=== PATIENT | male | born 1960 | race Caucasian/White ===

== ENCOUNTER 2019-04-18 03:56 | Emergency (ER) | payer MEDICAID, OTHER ==
[2019-04-18] MEDS ORDERED: KETOROLAC 60 MG/2 ML VIAL IM STA (04:31)
[2019-04-18] MEDS ORDERED: DEXAMETHASONE 10 MG/ML VIAL PO STA (04:31)
[2019-04-18] MEDS ORDERED: CHERRY SYRUP 10 ML UDC PO ONE (04:31)
--- NOTE | 2019-04-18 04:35 | ED Physician Documentation ---
PD HPI UPPER EXT INJURY - Stated complaint Stated Complaint: SHOULDER PX - Chief complaint Chief Complaint: Ext Problem - History obtained from History obtained from: Patient - History of Present Illness Location: Right, Shoulder Type of injury: Other (over use at work) Where injury occurred: Work Timing - onset: How many months ago (1) Timing - duration: Months (1) Timing - details: Gradual onset, Still present Improved by: Rest, Immobilization Worsened by: Moving, Palpating Associated symptoms: Swelling. 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 He states the pain has worsened. He has continued to go to work and the pain has continued to worsen. Tonight he cannot sleep the pain is so bad. Review of Systems Constitutional: denies: Fever Eyes: denies: Decreased vision Ears: denies: Ear pain Nose: denies: Congestion Throat: denies: Sore throat Respiratory: denies: Dyspnea, Cough GI: denies: Vomiting PD PAST MEDICAL HISTORY - Past Medical History Past Medical History: Yes Cardiovascular: Hypertension - Past Surgical History Past Surgical History: Yes - Present Medications Home Medications: Ambulatory Orders Medication Instructions Recorded Confirmed Hydrocodone/Acetaminophen 1 - 2 each PO Q6H PRN #14 tablet 04/18/19 [Hydrocodon-Acetaminophen 5-325] - Allergies Allergies/Adverse Reactions: Allergies Allergy/AdvReac Type Severity Reaction Status Date / Time No Known Drug Allergies Allergy Verified 04/18/19 04:03 - Social History Does the pt smoke?: No Smoking Status: Never smoker Does the pt drink ETOH?: No Does the pt have substance abuse?: No - Immunizations Immunizations are current?: No Immunizations: No immun - POLST Patient has POLST: No PD ED PE NORMAL - Vitals Vital signs reviewed: Yes (hypertensive ) - General General: Alert and oriented X 3, No acute distress, Well developed/nourished, Other (flat affect ) - HEENT HEENT: Atraumatic, PERRL, EOMI - Respiratory Respiratory: No respiratory distress - Derm Derm: Normal color, Warm and dry, No rash - Extremities Extremities: No deformity, No edema, Other (There is anterior fullness and tenderness to the right shoulder. There is restriction in ROM secondary to pain. The patient is able to flex and extend but not able to abduct. distal n/v is intact. ) - Neuro Neuro: Alert and oriented X 3, car pre cooler 2-12 intact, No motor deficit, No sensory deficit, Normal speech Eye Opening: Spontaneous Motor: Obeys Commands Verbal: Oriented GCS Score: 15 - Psych Psych: Normal mood, Normal affect Results - Vitals Vitals: Vital Signs - 24 hr 04/18/19 04:00 Temperature 36.5 C Heart Rate 61 Respiratory 18 Rate Blood Pressure 154/94 H O2 Saturation 99 Oxygen O2 Source Room air - Rads (name of study) R shoulder Radiology: Prelim report reviewed (Impression: Degenerative changes at the acromioclavicular joint. Otherwise, normal radiography of the right shoulder), EMP read indepedently, See rad report PD MEDICAL DECISION MAKING - ED course Complexity details: reviewed old records, reviewed results, re-evaluated patient, considered differential, d/w patient, d/w family ED course: 58-year-old male with an overuse of the right shoulder appears to have a bursitis and or tendinitis and he is administered dexamethasone and Toradol x- rays shoulders without evidence of fracture there is evidence of degenerative disease of the AC joint. He will need follow-up with orthopedics and potential further treatment. Departure - Departure Disposition: 01 Home, Self Care Clinical Impression: Bursitis Qualifiers: Bursitis location: shoulder Laterality: right Qualified Code(s): M75.51 - Bursitis of right shoulder Condition: Stable Instructions: ED Bursitis Follow-Up: [facility] [Provider Group] Prescriptions: Hydrocodone/Acetaminophen [Hydrocodon-Acetaminophen 5-325] 1 - 2 each PO Q6H PRN #14 tablet PRN Reason: pain
--- NOTE | 2019-04-18 05:07 | XRAY Report ---
Reason: anterior pain over use cant move through ROM Procedure Date: 04/18/2019 Accession Number: [id number] / [id number] Procedure: XR - Shoulder 3 View RT CPT Code: FULL RESULT: EXAM: RIGHT SHOULDER RADIOGRAPHY EXAM DATE: 04/18/2019 04:56 AM. CLINICAL HISTORY: Anterior pain over use cant move through ROM. COMPARISON: None. TECHNIQUE: 3 views. FINDINGS: Bones: Normal. No fracture or bone lesion. Joints: Hypertrophic and sclerotic changes at the acromioclavicular joint. Otherwise, the glenohumeral and acromioclavicular joints are normal. Soft tissues: The visualized hemithorax is unremarkable. No soft tissue swelling. IMPRESSION: Degenerative changes at the acromioclavicular joint. Otherwise, normal radiography of the right shoulder. RADIA
[2019-04-18 05:13] VITALS: BP 128/87
== END 2019-04-18 05:33 | disposition home or self-care (01) ==
LOC: ED 03:56
DX: M75.51 Bursitis of right shoulder (principal); M70.811 Other soft tissue disorders related to use, overuse and pressure, right shoulder; X50.9XXA Other and unspecified overexertion or strenuous movements or postures, initial encounter; Y93.89 Activity, other specified; Y99.0 Civilian activity done for income or pay; M19.011 Primary osteoarthritis, right shoulder; I10 Essential (primary) hypertension
CPT/HCPCS: 1040M; 73030; 96372; 99283; 99284; A9270

== ENCOUNTER 2019-05-21 11:55 | Outpatient (CLI) | payer SELFPAY | END 2019-05-21 11:56 | disposition critical access hospital (66) | LOC: EMS 11:55 | PROVIDERS: ATTEND Surgery | DX: T18.128A Food in esophagus causing other injury, initial encounter (principal) | CPT/HCPCS: A0425; A0427 ==

== ENCOUNTER 2019-05-21 12:09 | Emergency (ER) | payer SELFPAY ==
--- NOTE | 2019-05-21 12:34 | ED Physician Documentation ---
PD HPI ABD PAIN - Stated complaint Stated Complaint: choked on food - Chief complaint Chief Complaint: Abd Pain - History obtained from History obtained from: Patient - History of Present Illness Timing - onset: Today (58-year-old gentleman with recurrent esophageal food impactions presents after 1 of the same but is already resolved. 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 He ate some meat today and it got stuck, but it has since passed.) Review of Systems Constitutional: reports: Reviewed and negative Cardiac: reports: Reviewed and negative Respiratory: reports: Reviewed and negative PD PAST MEDICAL HISTORY - Past Medical History Cardiovascular: Hypertension - Past Surgical History Past Surgical History: Yes - Allergies Allergies/Adverse Reactions: Allergies Allergy/AdvReac Type Severity Reaction Status Date / Time No Known Drug Allergies Allergy Verified 05/21/19 12:23 - Social History Does the pt smoke?: No Smoking Status: Never smoker Does the pt drink ETOH?: No Does the pt have substance abuse?: No - Immunizations Immunizations are current?: No Immunizations: No immun - POLST Patient has POLST: No PD ED PE NORMAL - Vitals Vital signs reviewed: Yes - General General: Alert and oriented X 3, No acute distress - HEENT HEENT: Pharynx benign - Neck Neck: Supple, no meningeal sign, No bony TTP - Neuro Neuro: Alert and oriented X 3, Normal speech - Psych Psych: Normal mood, Normal affect Results - Vitals Vitals: Vital Signs - 24 hr 05/21/19 12:09 Temperature 36 C L Heart Rate 74 Respiratory 18 Rate Blood Pressure 143/85 H O2 Saturation 99 Oxygen O2 Source Room air PD MEDICAL DECISION MAKING - ED course ED course: He is able to tolerate fluids here so the esophageal impaction has passed. Advised follow-up with his gasket maker. Departure - Departure Disposition: 01 Home, Self Care Clinical Impression: Esophageal obstruction due to food impaction Condition: Good Instructions: ED Foreign Body Esophageal Rslv Follow-Up: Christy Hu MD [Provider Admit Priv/Credential] - Comments: Considering following up with your gasket maker again to reconsider dilatation of your esophagus or other measures. Until then go back to your meat free soft diet.
[2019-05-21 13:18] VITALS: BP 130/80
== END 2019-05-21 12:30 | disposition home or self-care (01) ==
LOC: EDBD → EDUNIT# → ED 12:09
DX: K22.2 Esophageal obstruction (principal); I10 Essential (primary) hypertension
CPT/HCPCS: 99282; 99283

== ENCOUNTER 2019-09-22 09:23 | Emergency (ER) | payer OTHER ==
--- NOTE | 2019-09-22 09:48 | ED Physician Documentation ---
PD HPI UPPER EXT INJURY - Stated complaint Stated Complaint: R ARM PX - Chief complaint Chief Complaint: Ext Problem - History obtained from History obtained from: Patient (59-year-old with right shoulder pain is been ongoing for 5 to 6 months. Case has been through [facility] and he is in the process of making appointment with orthopedic surgeon. This seems to be a frustrating process through multiple hurdles. He did had MRI done which shows tear. He also had x-ray of the elbow. Result is not reported to him yet. There is no distal numbness.In the emergency room he is a company by his family member. Both are pretty calm and not frustrated about the process he understand there is a need to slowly make appointment and have the surgical repair done by orthopedic surgeon. He is in pain and would like to have a prescription for it. His work requires heavy lifting and manipulation of the right arm frequently.), Family - History of Present Illness Location: Right, Shoulder, Elbow Where injury occurred: Work Timing - duration: Months PD PAST MEDICAL HISTORY - Past Medical History Cardiovascular: Hypertension Musculoskeletal: Other (right shoulder pain) - Past Surgical History Past Surgical History: Yes - Present Medications Home Medications: Ambulatory Orders Medication Instructions Recorded Confirmed Cyclobenzaprine [Flexeril] 10 mg PO TID PRN #20 tablet 09/22/19 traMADol [Ultram] 50 mg PO Q4-6H #20 tablet 09/22/19 - Allergies Allergies/Adverse Reactions: Allergies Allergy/AdvReac Type Severity Reaction Status Date / Time No Known Drug Allergies Allergy Verified 09/22/19 09:34 - Social History Does the pt smoke?: No Smoking Status: Never smoker Does the pt drink ETOH?: No Does the pt have substance abuse?: No - Immunizations Immunizations are current?: No Immunizations: No immun - POLST Patient has POLST: No PD ED PE NORMAL - Vitals Vital signs reviewed: Yes - General General: Alert and oriented X 3, No acute distress - HEENT HEENT: PERRL - Neck Neck: Supple, no meningeal sign - Cardiac Cardiac: RRR, No murmur - Respiratory Respiratory: No respiratory distress, Clear bilaterally - Abdomen Abdomen: Normal bowel sounds, Soft, Non tender, Non distended - Back Back: No CVA TTP, No spinal TTP - Derm Derm: Warm and dry - Extremities Extremities: Other (Limited range of motion to the right shoulder, patient held in abducted position, normal sensation distally.) - Neuro Neuro: Alert and oriented X 3 - Psych Psych: Normal mood, Normal affect Results - Vitals Vitals: Vital Signs - 24 hr 09/22/19 09:28 Temperature 36.6 C Heart Rate 89 Respiratory 17 Rate Blood Pressure 156/91 H O2 Saturation 98 Oxygen O2 Source Room air PD MEDICAL DECISION MAKING - ED course Complexity details: d/w patient, d/w family ED course: Patient suffer rotator cuff tendon injury or tear. MRI was finally done couple weeks ago. He is in the process of making appointment with orthopedic surgeon. As far as the management of this chronic right shoulder pain, I will be able to offer him some medication for pain and muscle relaxant. He is encouraged to continue making appointment with orthopedic surgeon for further surgical intervention and management. He understood. We will also apply a sling for him in the emergency room. Departure - Departure Disposition: 01 Home, Self Care Clinical Impression: Rotator cuff arthropathy of right shoulder Condition: Stable Instructions: Rotator Cuff Injury Follow-Up: Queenie Posey ARNP [Primary Care Provider] - Prescriptions: Cyclobenzaprine [Flexeril] 10 mg PO TID PRN #20 tablet PRN Reason: Spasms traMADol [Ultram] 50 mg PO Q4-6H #20 tablet Forms: Activity restrictions
[2019-09-22 10:03] VITALS: BP 136/79
== END 2019-09-22 10:02 | disposition home or self-care (01) ==
LOC: ED 09:23
DX: S46.011A Strain of muscle(s) and tendon(s) of the rotator cuff of right shoulder, initial encounter (principal); M25.521 Pain in right elbow; X50.9XXA Other and unspecified overexertion or strenuous movements or postures, initial encounter; Y93.89 Activity, other specified; Y99.0 Civilian activity done for income or pay; I10 Essential (primary) hypertension
CPT/HCPCS: 99281; 99282

== ENCOUNTER 2021-08-03 18:33 | Emergency (ER) | payer MEDICAID ==
[2021-08-03] MEDS ORDERED: SODIUM CHLORIDE 0.9% 1,000 ML IV STA (18:42)
[2021-08-03] MEDS ORDERED: NITROGLYCERIN SL 0.4 MG TABLET SL STA (18:43)
[2021-08-03] MEDS ORDERED: GLUCAGON 1 MG/ML VIAL IVP STA (18:43)
--- NOTE | 2021-08-03 18:48 | ED Physician Documentation ---
PD HPI NVD - Stated complaint Stated Complaint: FOREIGN BODY IN THROAT - Chief complaint Chief Complaint: Heent - History obtained from History obtained from: Patient - History of Present Illness Timing - onset: How many hours ago (1-2) Timing - duration: Hours (1-2) Timing - details: Abrupt onset, Still present Associated symptoms: Other (was starting to eat and food got stuck in esophagus. Spitting up saliva. Has had this 8 times previously and needed scoping each time.) Improved by: No: Vomiting Worsened by: Eating (trying sips of water causes pain and having to spit back up.) Review of Systems Cardiac: denies: Chest pain / pressure, Palpitations Respiratory: denies: Dyspnea, Cough GI: denies: Abdominal Pain, Bloody / black stool PD PAST MEDICAL HISTORY - Past Medical History Cardiovascular: Hypertension Musculoskeletal: Other (right shoulder pain) - Past Surgical History Past Surgical History: Yes - Present Medications Home Medications: Ambulatory Orders Medication Instructions Recorded Confirmed Cyclobenzaprine [Flexeril] 10 mg PO TID PRN #20 tablet 09/22/19 traMADol [Ultram] 50 mg PO Q4-6H #20 tablet 09/22/19 - Allergies Allergies/Adverse Reactions: Allergies Allergy/AdvReac Type Severity Reaction Status Date / Time No Known Drug Allergies Allergy Verified 08/03/21 18:42 - Social History Does the pt smoke?: No Smoking Status: Never smoker Does the pt drink ETOH?: No Does the pt have substance abuse?: No - Immunizations Immunizations are current?: No Immunizations: No immun - POLST Patient has POLST: No PD ED PE NORMAL - Vitals Vital signs reviewed: Yes - General General: Alert and oriented X 3, Well developed/nourished, Other (appears uncomfortable and holding emesis back with clear sputum in it. ) - Cardiac Cardiac: RRR, No murmur - Respiratory Respiratory: Clear bilaterally - Abdomen Abdomen: Soft, Non tender Results - Vitals Vitals: Oxygen O2 Source Room air PD MEDICAL DECISION MAKING - ED course Complexity details: re-evaluated patient (resolved spontaneously. ), considered differential (within minutes of talking with him, after in room from triage, he says he felt like the food passed and pain resolved. Given sips of water and he can drink it without discomfort. ), d/w patient Departure - Departure Disposition: Home, Self Care Clinical Impression: Food impaction of esophagus Condition: Stable Record reviewed to determine appropriate education?: Yes Comments: I am glad that you are improved. Liquids only for tonight and progress to soft food tomorrow and increase as tolerated. Return as needed. Discharge Date/Time: 08/03/21 19:25
[2021-08-03 19:22] VITALS: BP 150/90
== END 2021-08-03 19:25 | disposition home or self-care (01) ==
LOC: ED 18:33
DX: T18.128A Food in esophagus causing other injury, initial encounter (principal); I10 Essential (primary) hypertension
CPT/HCPCS: 80053; 80320; 83690; 85025; 99282; 99283

== ENCOUNTER 2022-02-21 08:20 | Outpatient (CLI) | payer MEDICAID ==
[2022-02-21 09:30] VITALS: BP 120/76
--- NOTE | 2022-02-21 09:30 | SLEEP CARE CONSULTATION ---
Information from patient questionnaire entered by Rodrigo Dean MA. I have reviewed and concur with the information entered by Rodrigo Dean MA. This document represents the service I personally performed and the decisions made by me, Xochilt Alcazar ARNP. History of Present Illness Service Date and Time: 02/21/2022 0820 Reason for Visit: New patient (ONSET 08/18/2020, NO PRIORS) Chief Complaint: reports: Insomnia, Unrefreshed sleep Date of Onset: 1 YEAR Usual bedtime: 1130 PM Time it takes to fall asleep: 5 MINUTES Snores at night: Yes Observed to quit breathing while asleep: No Sleeps alone due to snoring: No Number of times waking at night: 2 Reasons for waking at night: reports: Bathroom, Other (noise). denies: Choking, Snoring, Gasping for air Toss, Turn, or Twitch while sleeping: Yes Recalls having dreams: Yes Usually gets out of bed at: [id number] Feels refreshed in the morning: No Morning headache: Yes (1-2 times a year) Sleepy or fatigued during the day: Yes Ever fallen asleep while driving: No Takes day naps: No Dreams during day naps: No Prior sleep studies: No Additional HPI information: I had the pleasure of seeing BATSHEVA CAST today regarding the possibility of him having a sleep disorder. His current complaints are unrefreshed sleep and insomnia. He states for years he has been not being able to sleep more than 4 hours. He felt like he never went to bed. 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 He states he let go of some things causing stress at work in the last 2 weeks and has been sleeping longer. He had to "let a lot of things go". He has been feeling rested in the morning in the last couple weeks. He states he snores "once in a great while". He is exercising in the morning and walking after dinner. - Parasomnia Symptoms Ever been unable to move upon waking from sleep: No Walks in sleep: No Talks in sleep: Yes (not long) Ever acted out dreams in sleep: No Ever felt weak in the knees when startled or emotional: No Bothered by creepy, crawly, restless sensations in legs: No Problems with memory or concentration: Yes (memory more) Subjective Initial [place] Sleepiness Scale score: 5 (02/21/2022) Past Medical History Past Medical History: reports: Dysphagia (difficulty swallowing), GERD, Other (hernia repair) Social History The patient's occupation is a [employer]. Patient is Single and lives in [place]. Have you smoked in the past 12 months: No Alcohol use: No Caffeine use: Yes Caffeine amount and frequency: 2 X DAILY Family History Family history of sleep disordered breathing: Yes Family Hx Sleep Apnea: Father: Snoring Allergies and Home Medications Known drug allergies: No Drug allergies reviewed: Yes (NKDA) Home medication list reviewed: Yes (no daily medications) Allergy and home medication list: Allergies No Known Drug Allergies Allergy (Verified 08/03/21 18:42) Review of Systems Cardiovascular: reports: high blood pressure, have to sleep sitting up Gastrointestinal: reports: difficulty swallowing Neurological: denies: head trauma Psychiatric: denies: anxiety, depression Ear/Nose/Throat: reports: injury to nose, wisdom teeth removed, other (lot of dental work done). denies: dry mouth/throat, tonsillectomy Endocrine: denies: thyroid disease Immunologic: denies: allergies to food or environment Physical Exam Vital signs obtained and entered by: Dayana DEAN CMA KEVIN Blood Pressure: 120/76 (RESP 18, PULSE 58, RIGHT) Cuff size: wrist Heart Rate: 60 O2 Saturation: 97 (PAPER MASK) Height: 5 ft 10 in Weight: 204 lb (CLOTHES) Weight change since last visit: WATCHING WHAT HE EAT WANTS TO GO TO 195LBS Body Mass Index: 29.2 BMI Classification: Overweight Neck circumference: 16 (INCHES) Mouth and throat: narrow oropharynx Soft palate: long Hard palate: normal Uvula: normal Uvula visualization: 50% Mallampati Class II Tongue: enlarged in size with teeth ga on lateral edges Tonsils: 1+ Neck: normal w/o lymphadenopathy or thyromegaly Heart: regular rate and rhythm Lungs: clear bilaterally Impression and Plan 1. Suspected Obstructive Sleep Apnea-Hypopnea Syndrome, as suggested by a history of irregular snoring, unrefreshed sleep and cognitive impairment. Patient feels that since he has been able to deal with his stress in the last couple of weeks things have improved enough that he does not feel he needs to move forward with testing at this time. He states in the last couple of weeks his snoring has improved and he is feeling rested because he is able to sleep at least 7 hours nightly. He is exercising regularly. He has just learned how to "let go" of the stressors that were driving his inability to relax and sleep at night. I reviewed with him reasons for testing, including having a narrow oropharynx and obesity are common predisposing factors for obstructive sleep apnea-hypopnea syndrome. The pathophysiology of obstructive sleep apnea-hypopnea syndrome was discussed with the patient and health risks of cardiovascular and cerebrovascular disease if not treated. He still would like to decline testing at this time. He will follow-up with us if his symptoms return. Patient agreed to plan. * Follow-up as needed. * Continue to try to lose weight. Counseling Topics: Weight loss health impact Visit Type: In Office Time Spent with Patient (minutes): 39 Provider Statement: I spent 100% of the Face to Face Visit with the patient with greater than 50% spent counseling the patient and coordination of care.
== END 2022-02-21 08:21 | disposition home or self-care (01) ==
LOC: SC 08:20
PROVIDERS: ATTEND Nurse Practitioner Family
DX: G47.8 Other sleep disorders (principal); G47.00 Insomnia, unspecified; R06.83 Snoring; E66.3 Overweight; Z68.29 Body mass index [BMI] 29.0-29.9, adult
CPT/HCPCS: 99203; 99212

== ENCOUNTER 2022-03-14 07:30 | Outpatient (CLI) | payer MEDICAID ==
[2022-03-14 07:43] LABS: BASOPHILS # (AUTO) 0.1 10^3/uL (0.0-0.1); BASOPHILS % (AUTO) 0.8 %; EOSINOPHILS # (AUTO) 0.1 10^3/uL (0.0-0.7); EOSINOPHILS % (AUTO) 1.7 %; HCT - HEMATOCRIT 51.2 % (42.0-52.0); HGB - HEMOGLOBIN 17.4 g/dL (14.0-18.0); LYMPHOCYTES % (AUTO) 30.3 %; MEAN CORPUSCULAR HEMOGLOBIN 30.5 pg (27.0-31.0); MEAN CORPUSCULAR VOLUME 89.8 fL (80.0-94.0); MEAN PLATELET VOLUME 9.6 fL (7.4-11.4); MONOCYTES # (AUTO) 0.7 10^3/uL (0.0-1.0); MONOCYTES % (AUTO) 11.5 %; NEUTROPHILS # (AUTO) 3.6 10^3/uL (1.5-6.6); NEUTROPHILS % (AUTO) 55.1 %; PLT - PLATELET COUNT 212 10^3/uL (130-450); RED CELL DISTRIBUTION WIDTH 12.5 % (12.0-15.0); WHITE BLOOD COUNT 6.4 x10^3/uL (4.8-10.8)
[2022-03-14 08:04] LABS: ALBUMIN 4.2 g/dL (3.2-5.5); ALBUMIN/GLOBULIN RATIO 1.3 (1.0-2.2); ALKALINE PHOSPHATASE 81 IU/L (42-121); ALT ALANINE AMINOTRANSFERASE 25 IU/L (10-60); AST ASPARTATE AMINOTRANSFERASE 28 IU/L (10-42); BILIRUBIN,TOTAL 1.1 mg/dL (0.2-1.0); BUN - BLOOD UREA NITROGEN 16 mg/dL (6-20); CALCIUM 9.4 mg/dL (8.5-10.3); CARBON DIOXIDE - CO2 28 mmol/L (21-32); CHLORIDE 102 mmol/L (101-111); CHOL/HDL RATIO 4.3 (<5.0); CHOLESTEROL 165 mg/dL; CREATININE 1.1 mg/dL (0.6-1.2); GFR - MDRD 68 (>89); GLUCOSE 105 mg/dL (70-100); HDL CHOLESTEROL 38 mg/dL; LDL CHOLESTEROL,CALCULATED 110 mg/dL; LDL/HDL RATIO 2.9 (<3.6); POTASSIUM 3.8 mmol/L (3.5-5.0); SODIUM 136 mmol/L (135-145); TOTAL PROTEIN 7.4 g/dL (6.7-8.2); TRIGLYCERIDES 83 mg/dL; VLDL CHOLESTEROL 17 mg/dL
[2022-03-14 08:16] LABS: THYROID STIMULATING HORMONE 1.41 uIU/mL (0.34-5.60)
[2022-03-14] MEDS ORDERED: GADOBUTROL 10 MMOL/10 ML VIAL ONE (08:37)
[2022-03-14] MEDS ORDERED: GADOBUTROL 10 MMOL/10 ML VIAL IVP ONE (11:37)
--- NOTE | 2022-03-14 13:03 | MRI Report ---
PROCEDURE: MRI brain with and without contrast INDICATIONS: MEMORY IMPAIRMENT CONTRAST: IV CONTRAST: Gadavist ml: 9.3 TECHNIQUE: Noncontrast axial T1 spin echo, axial T2 fast spin echo, sagittal and axial FLAIR, coronal T2 fast sp in echo, axial gradient echo, axial diffusion and ADC through the brain. After the administration of contrast, axial and coronal T1 spin echo with fat saturation through the brain. COMPARISON: None. FINDINGS: Cerebrum, Cerebellum and Brainstem: The diffusion sequence is normal without evidence of acute infar ct. No intracranial hemorrhage, mass lesion or midline shift. There is a normal cerebral and cerebe llar volume present. Mild white matter chronic ischemic change present. Basal cisterns and foramen m agnum contain appropriate anatomy and vascular flow voids. No evidence of dural or leptomeningeal th ickening. Ventricles: Appropriate in size and position. No hydrocephalus. Skull Base: The bony sella, pituitary gland and infundibulum are unremarkable. Clivus and craniover tebral relationships are appropriate. Visualized portions of the seventh and eighth cranial nerve co mplexes and internal auditory canals are within normal limits. Scalp and Calvarium: The scalp is unremarkable. Underlying calvarium has an appropriate marrow signa l. Paranasal Sinuses: Right maxillary sinus mucosal retention cyst measures 1.5 cm. Mastoids: Unremarkable as visualized. No mastoid effusion present. Orbits: The orbits, globes and ocular muscles are unremarkable. IMPRESSION: 1. Trace white matter chronic ischemic change without intracranial hemorrhage, infarct or mass lesio n. 2. Incidental right maxillary sinus mucosal retention cyst Reviewed by: Juvencio Toribio MD on 03/14/2022 12:02 PM [facility] Approved by: Juvencio Toribio MD on 03/14/2022 12:02 PM [facility] Station ID: [id number]
== END 2022-03-14 07:31 | disposition home or self-care (01) ==
LOC: DI 07:30
PROVIDERS: ATTEND Physician Assistant
DX: R41.3 Other amnesia (principal); R40.0 Somnolence; K62.5 Hemorrhage of anus and rectum; R90.82 White matter disease, unspecified; Z13.220 Encounter for screening for lipoid disorders; Z12.5 Encounter for screening for malignant neoplasm of prostate; Z13.29 Encounter for screening for other suspected endocrine disorder
CPT/HCPCS: 36415; 70553; 80053; 80061; 82607; 84153; 84443; 85025; A9585; 83721

== ENCOUNTER 2022-04-17 10:52 | Emergency (ER) | payer MEDICAID ==
[2022-04-17 11:23] LABS: BASOPHILS # (AUTO) 0.1 10^3/uL (0.0-0.1); BASOPHILS % (AUTO) 0.7 %; EOSINOPHILS # (AUTO) 0.1 10^3/uL (0.0-0.7); EOSINOPHILS % (AUTO) 1.6 %; HCT - HEMATOCRIT 50.1 % (42.0-52.0); HGB - HEMOGLOBIN 17.1 g/dL (14.0-18.0); LYMPHOCYTES # (AUTO) 1.7 10^3/uL (1.5-3.5); LYMPHOCYTES % (AUTO) 24.6 %; MEAN CORPUSCULAR HEMOGLOBIN 30.6 pg (27.0-31.0); MEAN CORPUSCULAR HGB CONC 34.1 g/dL (32.0-36.0); MEAN CORPUSCULAR VOLUME 89.8 fL (80.0-94.0); MEAN PLATELET VOLUME 9.5 fL (7.4-11.4); MONOCYTES # (AUTO) 0.8 10^3/uL (0.0-1.0); MONOCYTES % (AUTO) 11.3 %; NEUTROPHILS # (AUTO) 4.3 10^3/uL (1.5-6.6); NEUTROPHILS % (AUTO) 61.4 %; PLT - PLATELET COUNT 221 10^3/uL (130-450); RED BLOOD COUNT 5.58 10^6/uL (4.70-6.10); RED CELL DISTRIBUTION WIDTH 12.6 % (12.0-15.0); WHITE BLOOD COUNT 7.1 x10^3/uL (4.8-10.8)
[2022-04-17 11:38] LABS: ALBUMIN 4.3 g/dL (3.2-5.5); ALBUMIN/GLOBULIN RATIO 1.3 (1.0-2.2); BILIRUBIN,TOTAL 0.7 mg/dL (0.2-1.0); CALCIUM 9.4 mg/dL (8.5-10.3); POTASSIUM 3.7 mmol/L (3.5-5.0); TOTAL PROTEIN 7.6 g/dL (6.7-8.2)
--- NOTE | 2022-04-17 12:38 | ED Physician Documentation ---
History of Present Illness - Stated complaint Stated Complaint: MALE GI - Chief complaint Chief Complaint: General - Additonal information Additional information: 61-year-old male presents emergency department for evaluation of about 2 weeks of rectal pain. He reports that over the last 2 weeks he has pain with any defecation. He is also noticed that his stool has decreased in size and caliber and now is only about the size of his small finger. He is color blind but thinks that the stool may be bloody at times. He is lost about 14 pounds over the last 2 weeks but he owns that to a decreased appetite. He does have a history of esophagitis. He reports colonoscopy currently scheduled for July. Patient states that he feels a hard lump and swelling on the left side of his rectum when he palpates the area. Review of Systems Constitutional: reports: Fatigue, Weight Loss. denies: Fever, Chills Eyes: reports: Reviewed and negative Throat: reports: Reviewed and negative Cardiac: reports: Reviewed and negative Respiratory: reports: Reviewed and negative GI: reports: Bloody / black stool, Other (Rectal pain, decreased caliber stool) : reports: Reviewed and negative Skin: reports: Reviewed and negative Musculoskeletal: reports: Reviewed and negative Neurologic: reports: Reviewed and negative PD PAST MEDICAL HISTORY - Past Medical History Cardiovascular: Hypertension Musculoskeletal: Other (right shoulder pain) - Past Surgical History Past Surgical History: Yes - Present Medications Home Medications: Ambulatory Orders Medication Instructions Recorded Confirmed Cyclobenzaprine [Flexeril] 10 mg PO TID PRN #20 tablet 09/22/19 traMADol [Ultram] 50 mg PO Q4-6H #20 tablet 09/22/19 HYDROcod/ACETAM 5/325 [[place] 5/325] 1 tablet PO BID PRN #10 tablet 04/17/22 - Allergies Allergies/Adverse Reactions: Allergies Allergy/AdvReac Type Severity Reaction Status Date / Time No Known Drug Allergies Allergy Verified 04/17/22 11:01 - Social History Does the pt smoke?: No Smoking Status: Never smoker Does the pt drink ETOH?: No Does the pt have substance abuse?: No - Immunizations Immunizations are current?: No Immunizations: No immun - POLST Patient has POLST: No PD ED PE NORMAL - General General: Alert and oriented X 3, No acute distress, Well developed/nourished - HEENT HEENT: Atraumatic, Moist mucous membranes - Neck Neck: Supple, no meningeal sign, No adenopathy - Respiratory Respiratory: No respiratory distress, Clear bilaterally - Abdomen Abdomen: Normal bowel sounds, Soft, Non tender - Rectal Rectal: Other (Hard linear palpable mass Left side of rectum in the perianal region. Small amount of obvious blood in the vault.) - Extremities Extremities: No deformity, No tenderness to palpate, Normal ROM s pain - Neuro Neuro: Alert and oriented X 3, jewel blocker and sawyer 2-12 intact Eye Opening: Spontaneous Motor: Obeys Commands Verbal: Oriented GCS Score: 15 - Psych Psych: Normal mood Results - Vitals Vitals: Vital Signs - 24 hr 04/17/22 10:55 Temperature 36.1 C L Heart Rate 82 Respiratory 16 Rate Blood Pressure 148/92 H O2 Saturation 99 Oxygen O2 Source Room air - Labs Labs: Laboratory Tests 04/17/22 04/17/22 04/17/22 11:15 11:15 12:39 WBC 7.1 RBC 5.58 Hgb 17.1 Hct 50.1 MCV 89.8 MCH 30.6 MCHC 34.1 RDW 12.6 Plt Count 221 MPV 9.5 Neut # (Auto) 4.3 Lymph # (Auto) 1.7 [place] # (Auto) 0.8 Eos # (Auto) 0.1 Baso # (Auto) 0.1 Absolute Nucleated RBC 0.00 Nucleated RBC % 0.0 Sodium 136 Potassium 3.7 Chloride 101 Carbon Dioxide 27 Anion Gap 8.0 BUN 14 Creatinine 1.0 Estimated GFR (MDRD) 76 L Glucose 111 H Calcium 9.4 Total Bilirubin 0.7 AST 24 ALT 23 Alkaline Phosphatase 83 Total Protein 7.6 Albumin 4.3 Globulin 3.3 Albumin/Globulin Ratio 1.3 Lipase 35 Urine Color YELLOW Urine Clarity CLEAR Urine pH 7.0 Ur Specific [place] 1.015 Urine Protein NEGATIVE Urine Glucose (UA) NEGATIVE Urine Ketones NEGATIVE Urine Occult Blood NEGATIVE Urine Nitrite NEGATIVE Urine Bilirubin NEGATIVE Urine Urobilinogen 0.2 (NORMAL) Ur Leukocyte Esterase NEGATIVE Ur Microscopic Review NOT INDICATED Urine Culture Comments NOT INDICATED - Rads (name of study) CT abd Radiology: Final report received (Finding is suggestive of circumferential malignant mass involving the rectal wall. Multiple hypodense lesions scattered in the liver parenchyma concerning for liver metastatic disease. Mildly enlarged perirectal nodes and bilateral inguinal lymph nodes concerning for metastatic lymphadenopathy) PD MEDICAL DECISION MAKING - ED course Complexity details: reviewed results, re-evaluated patient, considered differential, d/w patient ED course: 61-year-old male presents emergency department for evaluation of a few weeks perirectal pain, the development of an abnormal mass as well as a decrease in stool caliber. Unfortunately CT imaging has shown rectal wall mass with metastasis to the liver. Patient CBC, electrolytes and liver function test today are essentially unremarkable. These findings were discussed with the patient at length. I also discussed the findings with his primary care provider. She will be making emergent referral to colorectal surgery as well as to hematology and oncology in the office will be scheduling emergent follow-up of this ER visit. I am encouraging the patient to use lidocaine creams for any perirectal discomfort. For severe pain I have prescribed some Vicodin. We discussed that he is at risk for severe constipation and rectal obstruction given the mass therefore I am also encouraging the use of MiraLAX. Emergent return precautions were otherwise discussed for worsening symptoms. I am prescribing a short course of short-acting opioid pain medication for this patient. I have reviewed the patients SECURITY AND PRIVACY CONSULTANT and no concerning findings were noted. I have discussed that the opioids are for short term therapy only, and will not be refilled from the ED. Departure - Departure Clinical Impression: Mass in rectum, Metastatic cancer to liver Follow-Up: Catrachita Orta PA-C [Primary Care Provider] - Prescriptions: HYDROcod/ACETAM 5/325 [[place] 5/325] 1 tablet PO BID PRN #10 tablet PRN Reason: Pain Comments: Etienne unfortunately the CT of your abdomen shows a mass involving your rectal wall. This is very concerning for rectal cancer. The rest of the CT scan is also concerning for spread of disease to the liver. You will need an emergent referral to a colorectal surgeon as well as to a rest room matron oncologist to discuss what treatment options are regarding your rectal cancer and liver metastasis. In general you can use lidocaine creams for rectal tenderness. I am prescribing a limited amount of Vicodin for severe pain. I want you to use this very cautiously. It can be constipating. You will begin to have difficulty defecating and passing bowel movements with your rectal mass so I do encourage you to begin using MiraLAX once daily to help soften the stools and prevent straining. I did speak with RYANN Santos your primary doctor. We discussed your imaging. She is going to be making emergent referrals for you to a colorectal surgeon as well as hematology oncology. The office will also Call you shortly to schedule ER follow-up. If you do not hear from them by Friday afternoon please give the office a call. I am prescribing a short course of narcotic pain medication for you. These are potentially dangerous and addictive medications that should be used carefully. These medications may constipate you. Take an xoxo-nmg-niemfkr stool softener (docusate) twice daily with plenty of water while taking these medications. If you go 24 hours without a bowel movement, take glvt-wmi-vwwafrv miralax, per package instructions. Do not drink or drive while taking these medications. If you received narcotic or sedating medications while in the emergency department, do not drive for 24 hours. Store this medication in a safe, secure place and out of reach of children. It is a violation of federal law to give or sell this medication to another person or to use in a manner other than prescribed. The ED will not refill narcotic prescriptions, including prescriptions lost or s tolen. To dispose of unwanted medications: 1. [facility] [address] in [place] has a medication drop box. They accept prescription medications (in pi ll form) Friday through Friday 9:00 a.m. to 5:00 p.m. 2. The [facility] [employer] accepts prescription medications (in pill form only) for disposal year round. Call for more information. 3. Contact the [facility] for the next [facility] sponsored prescription drug collection event. , [phone], or [phone]; Note that many narcotic pain relievers also contain Tylenol/acetaminophen. Please ensure that your total dose of acetaminophen from all sources does not exceed 3 g (3000 mg) per day.
[2022-04-17 12:55] LABS: BILIRUBIN,URINE NEGATIVE (NEGATIVE); GLUCOSE, URINE (UA) NEGATIVE (NEGATIVE); KETONES,URINE (UA) NEGATIVE (NEGATIVE); LEUKOCYTE ESTERASE, URINE NEGATIVE (NEGATIVE); NITRITE,URINE NEGATIVE (NEGATIVE); OCCULT BLOOD,URINE NEGATIVE (NEGATIVE); PROTEIN,URINE NEGATIVE (NEGATIVE); UROBILINOGEN,URINE 0.2 (NORMAL) E.U./dL (NORMAL)
[2022-04-17 13:01] LABS: CLARITY,URINE CLEAR (CLEAR)
--- NOTE | 2022-04-17 13:50 | CT Report ---
PROCEDURE: Abdomen/Pelvis W INDICATIONS: rectal pain; decreased stool caliber CONTRAST: IV CONTRAST: Optiray 320 ml: 100 PO CONTRAST: *NO PO CONTRAST TECHNIQUE: After the administration of IV contrast, 5 mm thick sections acquired from the diaphragms to the symp hysis. 5 mm thick coronal and sagittal reformats were acquired. For radiation dose reduction, the f ollowing was used: automated exposure control, adjustment of mA and/or kV according to patient size. COMPARISON: None. FINDINGS: Image quality: Excellent. ABDOMEN: Lung bases: Bibasilar dependent atelectasis are seen posteriorly. Heart size is normal. Solid organs: Liver is enlarged. Multiple hypodense lesions are seen scattered in right hepatic lobe. Lesion 1: Anterior segment right hepatic lobe and measures approximately 1.7 x 2.1 cm in size series 3 image 15. Lesion 2: Anterior segment right hepatic lobe and measures 2.1 x 2 cm in size series 3 image 16. Lesion 3: Inferior right hepatic lobe posterior segment, and measures 2 x 2 0.3 cm in size series 3 i mage 22. Lesion 4: Most inferior aspect of right hepatic lobe and measures 1 cm in size series 3 image 32. Spleen is normal in size and show normal enhancement. Gallbladder is within normal limits. Biliary s ystem is non dilated. Pancreas enhances normally. No adrenal nodules. Kidneys demonstrate normal s ize and enhancement, without hydronephrosis. Peritoneum and bowel: There is no evidence of bowel obstruction. No gastric or small bowel wall thick ening. Small hiatal hernia is seen. Mild fecal stasis in the colon is noted. Moderate descending colo n and sigmoid colon diverticulosis is seen without colonic wall thickening or mesenteric fat strandin g. No abscess collection is seen. There is circumferential rectal wall thickening involving 9 cm segm ent of rectum with markedly narrowing of the lumen highly suggestive of rectal wall malignant mass. Nodes and vessels: No retroperitoneal or mesenteric adenopathy by size criteria. Multiple perirectal lymph nodes are seen measures up to 7 mm in size in left posterior lateral perirectal space and 5 mm in size in right anterolateral perirectal space. Aorta and inferior vena cava are normal in size. Miscellaneous: No ventral hernias. PELVIS: Genitourinary: Bladder wall thickness is normal. Miscellaneous: No inguinal hernias. Large bilateral inguinal lymph nodes are seen measures up to 1.4 cm in size on the right side and 1.3 cm in size on the left side series 3 image 84. Bones: No suspicious bony lesions. No vertebral body compression fractures. IMPRESSION: 1. Finding is highly suggestive of circumferential malignant mass involving rectal wall as described above. 2. Multiple hypodense lesions scattered in the liver parenchyma concerning for liver metastatic disea se. 3. Mildly enlarged perirectal nodes and bilateral inguinal lymph nodes concerning for metastatic lymp hadenopathy. Reviewed by: Uli Thompson MD on 04/17/2022 1:48 PM PDT Approved by: Uli Thompson MD on 04/17/2022 1:48 PM PDT Station ID: [id number]
[2022-04-17 14:53] VITALS: BP 156/101
== END 2022-04-17 14:56 | disposition home or self-care (01) ==
LOC: ED 10:52
DX: K62.89 Other specified diseases of anus and rectum (principal); C78.7 Secondary malignant neoplasm of liver and intrahepatic bile duct
CPT/HCPCS: 36415; 74177; 80053; 81003; 83690; 85025; 99284; Q9967; 81001; 87086

== ENCOUNTER 2022-04-25 09:21 | Outpatient (CLI) | payer MEDICAID ==
[2022-04-25 09:40] LABS: BASOPHILS % (AUTO) 0.6 %; EOSINOPHILS # (AUTO) 0.1 10^3/uL (0.0-0.7); EOSINOPHILS % (AUTO) 1.3 %; HCT - HEMATOCRIT 49.3 % (42.0-52.0); LYMPHOCYTES # (AUTO) 1.7 10^3/uL (1.5-3.5); LYMPHOCYTES % (AUTO) 23.6 %; MEAN CORPUSCULAR HGB CONC 34.5 g/dL (32.0-36.0); MEAN CORPUSCULAR VOLUME 89.8 fL (80.0-94.0); MEAN PLATELET VOLUME 9.5 fL (7.4-11.4); MONOCYTES # (AUTO) 0.9 10^3/uL (0.0-1.0); MONOCYTES % (AUTO) 11.9 %; NEUTROPHILS # (AUTO) 4.4 10^3/uL (1.5-6.6); NEUTROPHILS % (AUTO) 62.2 %; PLT - PLATELET COUNT 225 10^3/uL (130-450); RED BLOOD COUNT 5.49 10^6/uL (4.70-6.10); RED CELL DISTRIBUTION WIDTH 12.5 % (12.0-15.0); WHITE BLOOD COUNT 7.1 x10^3/uL (4.8-10.8)
[2022-04-25 09:59] LABS: ALBUMIN 4.2 g/dL (3.2-5.5); ALBUMIN/GLOBULIN RATIO 1.3 (1.0-2.2); BILIRUBIN,TOTAL 1.1 mg/dL (0.2-1.0); CALCIUM 9.5 mg/dL (8.5-10.3); TOTAL PROTEIN 7.5 g/dL (6.7-8.2)
== END 2022-04-25 09:22 | disposition home or self-care (01) ==
LOC: LAB 09:21
PROVIDERS: ATTEND Physician Assistant
DX: D49.0 Neoplasm of unspecified behavior of digestive system (principal)
CPT/HCPCS: 36415; 80053; 82378; 83540; 84466; 85025

== ENCOUNTER 2022-04-29 07:42 | Outpatient (CLI) | payer MEDICAID ==
[2022-04-29] MEDS ORDERED: lidocaine 1% 20 ML MDV ONE (08:26)
[2022-04-29 08:51] LABS: INR 1.1 (0.8-1.2); PT - PROTHROMBIN TIME 12.3 secs (9.9-12.6)
[2022-04-29 08:58] LABS: PARTIAL THROMBOPLASTIN TIME 28.9 secs (24.9-33.3)
[2022-04-29] MEDS ORDERED: MIDAZOLAM 2 MG/2 ML VIAL ONE (09:06)
[2022-04-29] MEDS ORDERED: fentaNYL 100 MCG/2 ML VIAL ONE (09:06)
--- NOTE | 2022-04-29 14:46 | CT Report ---
PROCEDURE: LIVER BX PERC Sedation analgesia for minutes. INDICATIONS: ABNORMAL CT TECHNIQUE: The indications, alternatives, benefits, risks, and possible complications of the procedure were comm unicated to the patient. Informed written consent from the patient was obtained and placed in the art. Continuous EKG and hemodynamic monitoring was started by trained personnel. For radiation dose reduction, the following was used: automated exposure control, adjustment of mA and/or kV according to patient size. The patient was brought to the CT suite and refrigerator cabinetmaker spiral CT imaging was performed with localization g rid. The appropriate site for percutaneous access to the biopsy target was marked, was prepped and d raped sterilely, and was infused with local anaesthesia. Under CT guidance, a core biopsy trocar and needle set was advanced to the biopsy target, and specimen(s) were obtained. The trocar and needle were then removed, a biosentry device was employed, and the patient was sent for post-procedure monit oring. COMPARISON: None. FINDINGS: Biopsy site: Right hepatic lobe mass Needle: 20 gauge biopsy needle with introducer trocar. Number of passes: 4 Medications: 1% lidocaine for local anaesthesia. IV Fentanyl and Versed for conscious sedation for minutes (see nursing record). Complications: None. IMPRESSION: Successful CT-guided biopsy of right hepatic lobe mass. Reviewed by: Ken Elizalde MD on 04/29/2022 2:45 PM PDT Approved by: Ken Elizalde MD on 04/29/2022 2:45 PM PDT Station ID: [id number]
[2022-04-29] MEDS ORDERED: lidocaine 1% 20 ML MDV SUBQ ONE (15:55)
== END 2022-04-29 07:43 | disposition home or self-care (01) ==
LOC: DI 07:42
PROVIDERS: ATTEND Physician Assistant
DX: C78.7 Secondary malignant neoplasm of liver and intrahepatic bile duct (principal); C80.1 Malignant (primary) neoplasm, unspecified; D49.0 Neoplasm of unspecified behavior of digestive system
CPT/HCPCS: 36415; 47000; 85610; 85730

== ENCOUNTER 2022-04-29 07:42 | Day surgery (SDC) | payer MEDICAID ==
[2022-04-29] MEDS ORDERED: LACTATED RINGERS 1,000 ML IV ONE ×2 (08:13→11:04)
[2022-04-29 14:57] VITALS: BP 124/87
== END 2022-04-29 07:43 | disposition home or self-care (01) ==
LOC: SDS 07:42
PROVIDERS: ATTEND Radiology Neuroradiology
DX: C78.7 Secondary malignant neoplasm of liver and intrahepatic bile duct (principal); C80.1 Malignant (primary) neoplasm, unspecified; D49.0 Neoplasm of unspecified behavior of digestive system
CPT/HCPCS: 36415; 47000; 77012; 85014; 85610; 85730; J7120

== ENCOUNTER 2022-05-16 12:12 | Day surgery (SDC) | payer MEDICAID ==
[2022-05-16] MEDS ORDERED: CEFAZOLIN 2G/50ML 0.9% NS 2 GM/50 ML BAG IV ONE (12:27)
[2022-05-16] MEDS ORDERED: LACTATED RINGERS 1,000 ML IV ONE ×2 (12:50→15:15)
--- NOTE | 2022-05-16 13:19 | ANESTHESIA ---
Pre-Anesthesia VS, & Labs - Diagnosis rectal cancer - Procedure port placement Vital Signs: Temp Pulse Resp BP Pulse Ox O2 Flow Rate 36.4 C L 87 17 144/89 H 96 05/16/22 12:37 05/16/22 12:37 05/16/22 12:37 05/16/22 12:37 05/16/22 12:37 Height: 5 ft 11 in Weight (kg): 86.6 kg Body Mass Index: 26.6 BMI Classification: Overweight - NPO >8 hours Home Medications and Allergies polyethylene glycoL 3350 [Miralax] 2 packet PO DAILY 05/02/22 Allergies/Adverse Reactions: Allergies Allergy/AdvReac Type Severity Reaction Status Date / Time No Known Drug Allergies Allergy Verified 05/15/22 17:34 Anes History & Medical History - Anesthetic History Anesthesia Complications: reports: No previous complications - Medical History Cardiovascular: reports: None Gastrointestinal: reports: Other (rectal cancer) Urinary: reports: None Musculoskeletal: reports: Chronic back pain Endocrine/Autoimmune: reports: None Skin: reports: None Smoking Status: Never smoker History of Cancer?: Yes - Surgical History General: reports: Colonoscopy, EGD, Other Exam General: Alert, Oriented x3 Dental: WNL Mouth Opening: Greater than 4 Fingerbreadths Mallampati classification: II Thyromental Distance: greater than 6 cm Respiratory: Lungs clear Cardiovascular: Regular rate Plan Anesthesia Type: General, Total IV Consent for Procedure(s) Verified and Reviewed: Yes Code Status: Attempt Resuscitation ASA classification: 3-Severe systemic disease Is this case an emergency?: No
[2022-05-16] MEDS ORDERED: NALOXONE 0.4 MG/ML VIAL IVP PRN (13:39)
[2022-05-16] MEDS ORDERED: METOCLOPRAMIDE 10 MG/2 ML VIAL IVP PRN (13:39)
[2022-05-16] MEDS ORDERED: ONDANSETRON 4 MG/2 ML VIAL IVP PRN ×2 (13:39→15:10)
[2022-05-16] MEDS ORDERED: ATROPINE ABBOJECT 1 MG/10 ML SYRINGE IVP PRN (13:39)
[2022-05-16] MEDS ORDERED: fentaNYL 100 MCG/2 ML VIAL IVP PRN (13:39)
[2022-05-16] MEDS ORDERED: PROPOFOL 200 MG/20 ML VIAL IVP ONE ×2 (13:39→14:28)
[2022-05-16] MEDS ORDERED: ePHEDrine 50 MG/ML VIAL IVP PRN (13:39)
[2022-05-16] MEDS ORDERED: HYDROmorphone 0.5 MG/0.5 ML SYRINGE IVP PRN ×2 (13:39→15:10)
[2022-05-16] MEDS ORDERED: MORPHINE 2 MG/ML CARPUJECT IVP PRN (13:39)
[2022-05-16] MEDS ORDERED: BUPIVACAINE 0.25% PF 10 ML VIAL ONE (13:41)
[2022-05-16] MEDS ORDERED: LIDOCAINE 1% 50 ML MDV ONE (13:41)
[2022-05-16] MEDS ORDERED: MIDAZOLAM 2 MG/2 ML VIAL ONE (13:45)
[2022-05-16] MEDS ORDERED: fentaNYL 100 MCG/2 ML VIAL ONE ×2 (13:45→14:15)
[2022-05-16] MEDS ORDERED: LACTATED RINGERS 1,000 ML IV SCH (14:00)
[2022-05-16] MEDS ORDERED: SODIUM CHLORIDE 0.9% 100 ML BAG IV ONE (14:28)
[2022-05-16] MEDS ORDERED: BUPIVACAINE 0.25% PF 30 ML VIAL SUBQ ONE ×2 (14:29)
[2022-05-16] MEDS ORDERED: ONDANSETRON 4 MG/2 ML VIAL ONE (14:48)
[2022-05-16] MEDS ORDERED: DEXAMETHASONE 4 MG/ML VIAL ONE (14:48)
[2022-05-16] MEDS ORDERED: HYDROmorphone 1 MG/ML CARPUJECT ONE (14:56)
[2022-05-16] MEDS ORDERED: HYDROmorphone 2 MG TABLET PO PRN (15:12)
--- NOTE | 2022-05-16 15:15 | OPERATIVE REPORT ---
Operative Report - General Procedure Date: 05/16/22 Planned Procedure: left subclavian power port placement Pre-Op Diagnosis: anal cancer Procedure Performed: left subclavian powerport placement fluoroscopic guidance Post Op Diagnosis: anal cancer - Procedure Note Primary Surgeon: jason coker Anesthesia Technique: General LMA, Local Pathology: none Estimated Blood Loss (mL): 3 Drain/Tube Type: Other (none) Indications: anal cancer and need for chemotherapy Findings: good flush and flow. tip at atrium/ svc junction Complications: none - Other Other Information/Narrative: The patient was properly identified brought to the operating room and placed in supine position. Monitor anesthesia care was given as well as IV sedation. A towel roll was placed under the upper back. The patient was prepped and draped in a sterile fashion and given preoperative antibiotics. Local anesthetic was given. The left subclavian vein was easily accessed first pass with a needle. Guide wire placed and position confirmed. A subcutaneous pocket on the left upper chest was created measuring approximately 2-1/2 cm. Portacatheter tubing was then placed subcutaneous up to the venous access point. The portacatheter tubing was then easily placed with the use of a dilator peel-away sheath. The tubing was aspirated and flushed with saline. Under fluoroscopic guidance the tubing was pulled back to the junction of the atrium and the superior vena cava. The portacatheter aspirated and flushed easily assuring good position. The portacatheter was then cut to size and further assembled. The port was secured to subcutaneous tissue with 2 interrupted 4-0 Prolene sutures. The port again was aspirated and flushed now with heparin. Buried interrupted subdermal 3-0 Vicryl sutures were then placed. Skin was closed with buried interrupted and running 4-0 Monocryl subcuticular suture. Dressing was applied. The patient tolerated the procedure well was awakened and brought to recovery in good condition.
--- NOTE | 2022-05-16 15:40 | ANESTHESIA POST OP EVALUATION ---
Anesthesia Post Eval - Post Anesthesia Eval Vitals: Last Vital Signs Temp 36.9 C 05/16/22 15:35 Pulse 73 05/16/22 15:35 Resp 16 05/16/22 15:35 BP 129/85 H 05/16/22 15:35 Pulse Ox 98 05/16/22 15:35 O2 Flow Rate CV Function Including HR & BP: Stable Pain Control: Satisfactory Nausea & Vomiting: Negative Mental Status: Baseline Respiratory Status: Airway Patent Hydration Status: Satisfactory Anesthesia Complications: None
[2022-05-16 16:21] VITALS: BP 139/94
--- NOTE | 2022-05-16 16:45 | XRAY Report ---
PROCEDURE: OR Port-A-Cath INDICATIONS: Portacath Placement TECHNIQUE: Single intraprocedural fluoroscopic image obtained. COMPARISON: None. FINDINGS: A single intraoperative fluoroscopic image is submitted. A left-sided vascular catheter is present, l ikely within the internal jugular vein with tip projecting near the expected location of the lower SV C. IMPRESSION: Intraprocedural fluoroscopy was provided for guidance and anatomic localization. Please see the proc edure report for further details. Reviewed by: Logan Garland MD on 05/16/2022 4:44 PM PDT Approved by: Logan Garland MD on 05/16/2022 4:44 PM PDT Station ID: [id number]
== END 2022-05-16 12:13 | disposition home or self-care (01) ==
LOC: SDS 12:12
PROVIDERS: ATTEND Surgery
DX: C21.0 Malignant neoplasm of anus, unspecified (principal)
CPT/HCPCS: 36561; C1788; J0690; J1170; J7120

== ENCOUNTER 2022-10-29 21:56 | Emergency (ER) | payer MEDICAID ==
[2022-10-29 22:39] LABS: BASOPHILS % (AUTO) 0.5 %; EOSINOPHILS % (AUTO) 0.5 %; HCT - HEMATOCRIT 42.3 % (42.0-52.0); HGB - HEMOGLOBIN 14.2 g/dL (14.0-18.0); LYMPHOCYTES # (AUTO) 1.3 10^3/uL (1.5-3.5); LYMPHOCYTES % (AUTO) 17.7 %; MEAN CORPUSCULAR HEMOGLOBIN 31.7 pg (27.0-31.0); MEAN CORPUSCULAR HGB CONC 33.6 g/dL (32.0-36.0); MEAN CORPUSCULAR VOLUME 94.4 fL (80.0-94.0); MEAN PLATELET VOLUME 9.9 fL (7.4-11.4); MONOCYTES # (AUTO) 0.6 10^3/uL (0.0-1.0); MONOCYTES % (AUTO) 7.7 %; NEUTROPHILS # (AUTO) 5.3 10^3/uL (1.5-6.6); NEUTROPHILS % (AUTO) 72.4 %; PLT - PLATELET COUNT 183 10^3/uL (130-450); RED BLOOD COUNT 4.48 10^6/uL (4.70-6.10); RED CELL DISTRIBUTION WIDTH 13.4 % (12.0-15.0); WHITE BLOOD COUNT 7.4 x10^3/uL (4.8-10.8)
[2022-10-29] MEDS ORDERED: iohexoL-300 100 ML VIAL ONE (22:48)
[2022-10-29 22:52] LABS: ALBUMIN 3.6 g/dL (3.2-5.5); ALBUMIN/GLOBULIN RATIO 0.9 (1.0-2.2); BILIRUBIN,TOTAL 0.5 mg/dL (0.2-1.0); CALCIUM 9.1 mg/dL (8.5-10.3); CREATININE 0.9 mg/dL (0.6-1.2); POTASSIUM 3.5 mmol/L (3.5-5.0); TOTAL PROTEIN 7.4 g/dL (6.7-8.2)
[2022-10-29] MEDS ORDERED: MORPHINE 2 MG/ML CARPUJECT IVP STA (23:05)
[2022-10-29] MEDS ORDERED: HYDROmorphone 1 MG/ML CARPUJECT IVP STA (23:34)
--- NOTE | 2022-10-29 23:45 | ED Physician Documentation ---
PD HPI ABD PAIN - Stated complaint Stated Complaint: COLD,ABD PX - Chief complaint Chief Complaint: Abd Pain - History obtained from History obtained from: Patient - Additional information Additional information: 62-year-old man with history of stage IV rectal cancer presents with abdominal pain and bloating over the past several hours. He had similar pain 2 weeks ago that resolved. Patient is currently on maintenance chemotherapy and had his last treatment [address] mcneill. Normal bowel movement this morning. Passing decreased flatus. Denies urinary symptoms, fever, nausea or vomiting. Review of Systems Constitutional: denies: Fever Cardiac: denies: Chest pain / pressure Respiratory: denies: Dyspnea GI: reports: Abdominal Pain. denies: Nausea, Vomiting, Constipation, Diarrhea PD PAST MEDICAL HISTORY - Past Medical History Past Medical History: Yes Cardiovascular: None Endocrine/Autoimmune: None GI: Other : None Psych: None Musculoskeletal: Chronic back pain Derm: None Other Past Medical History: Rectal Cancer Metastasized to Liver - On Chemo - Past Surgical History Past Surgical History: Yes General: Colonoscopy, EGD, Other - Present Medications Home Medications: Ambulatory Orders Medication Instructions Recorded Confirmed HYDROmorphone [Dilaudid] 6 mg PO Q4H PRN 10/30/22 10/30/22 - Allergies Allergies/Adverse Reactions: Allergies Allergy/AdvReac Type Severity Reaction Status Date / Time No Known Drug Allergies Allergy Verified 10/29/22 22:03 - Social History Does the pt smoke?: No Smoking Status: Never smoker Does the pt drink ETOH?: No Does the pt have substance abuse?: No - Immunizations Immunizations are current?: No Immunizations: No immun - POLST Patient has POLST: No PD ED PE NORMAL - Vitals Vital signs reviewed: Yes - General General: Alert and oriented X 3, Other (Mild to moderate distress) - HEENT HEENT: Atraumatic, PERRL, EOMI - Neck Neck: Supple, no meningeal sign - Cardiac Cardiac: RRR - Respiratory Respiratory: No respiratory distress, Clear bilaterally - Abdomen Abdomen: Other (Diffuse discomfort to palpation. Decreased bowel sounds) - Back Back: No CVA TTP - Derm Derm: Normal color Results - Vitals Vitals: Vital Signs - 24 hr 10/29/22 10/29/22 10/29/22 22:03 22:41 23:45 Temperature 36.5 C 36.9 C Heart Rate 88 74 73 Respiratory 20 20 20 Rate Blood Pressure 140/86 H 170/87 H 171/94 H O2 Saturation 100 100 200 H 10/30/22 10/30/22 10/30/22 00:19 02:30 03:12 Temperature 37.0 C Heart Rate 71 72 Respiratory 14 14 Rate Blood Pressure 168/89 H 180/91 H O2 Saturation 99 99 Oxygen O2 Source Room air - Labs Labs: Laboratory Tests 10/29/22 10/29/22 10/30/22 22:35 22:35 01:11 WBC 7.4 RBC 4.48 L Hgb 14.2 Hct 42.3 MCV 94.4 H MCH 31.7 H MCHC 33.6 RDW 13.4 Plt Count 183 MPV 9.9 Neut # (Auto) 5.3 Lymph # (Auto) 1.3 L [place] # (Auto) 0.6 Eos # (Auto) 0.0 Baso # (Auto) 0.0 Absolute Nucleated RBC 0.00 Nucleated RBC % 0.0 Sodium 135 Potassium 3.5 Chloride 102 Carbon Dioxide 21 Anion Gap 12.0 BUN 14 Creatinine 0.9 Estimated GFR (MDRD) 86 L Glucose 175 H Calcium 9.1 Total Bilirubin 0.5 AST 52 H ALT 64 H Alkaline Phosphatase 202 H Total Protein 7.4 Albumin 3.6 Globulin 3.8 Albumin/Globulin Ratio 0.9 L Lipase 33 Urine Color YELLOW Urine Clarity CLEAR Urine pH 7.5 Ur Specific [place] 1.010 Urine Protein NEGATIVE Urine Glucose (UA) NEGATIVE Urine Ketones NEGATIVE Urine Occult Blood NEGATIVE Urine Nitrite NEGATIVE Urine Bilirubin NEGATIVE Urine Urobilinogen 0.2 (NORMAL) Ur Leukocyte Esterase NEGATIVE Ur Microscopic Review NOT INDICATED Urine Culture Comments NOT INDICATED PD Medical Decision Making - ED course ED course: 62-year-old male with history of stage IV rectal cancer presents with abdominal pain and bloating. CBC, abdominal panel, urine testing ordered. Lab work unremarkable with exception of AST ALT of 52/64 and alk phos of 202 which is stable from previous. Provided fluids, pain medication including IV morphine and Dilaudid With improvement. Will obtain CT abdomen and pelvis with IV and p.o. contrast to evaluate for bowel obstruction. CT negative but did show metastatic spread. d/w patient who will f/u with outpatient palliative care and oncologist. return precautions given. Departure - Departure Disposition: 01 Home, Self Care Clinical Impression: Abdominal pain Condition: Stable Instructions: Abdominal Pain Follow-Up: Myra Murphy ARNP [Provider Admit Priv/Credential] - Comments: You were seen in the emergency department for abdominal pain and bloating. Your work-up uncovered metastatic spread of your cancer. There was no other significant explanation for your symptoms. Please follow-up with palliative care and return to the emergency department for new or worsening symptoms or other concerns. Discharge Date/Time: 10/30/22 03:12
[2022-10-30 01:23] LABS: BILIRUBIN,URINE NEGATIVE (NEGATIVE); GLUCOSE, URINE (UA) NEGATIVE (NEGATIVE); KETONES,URINE (UA) NEGATIVE (NEGATIVE); LEUKOCYTE ESTERASE, URINE NEGATIVE (NEGATIVE); NITRITE,URINE NEGATIVE (NEGATIVE); OCCULT BLOOD,URINE NEGATIVE (NEGATIVE); PH,URINE 7.5 PH (5.0-7.5); PROTEIN,URINE NEGATIVE (NEGATIVE); UROBILINOGEN,URINE 0.2 (NORMAL) E.U./dL (NORMAL)
[2022-10-30 01:27] LABS: CLARITY,URINE CLEAR (CLEAR)
--- NOTE | 2022-10-30 01:45 | CT Report ---
PROCEDURE: ABDOMEN/PELVIS W INDICATIONS: abdominal pain, hx rectal ca stage 4 CONTRAST: Omni 300 100ml TECHNIQUE: After the administration of intravenous contrast, 5 mm thick sections acquired from the diaphragms to the symphysis. 5 mm thick coronal and sagittal reformats were acquired. For radiation dose reducti on, the following was used: automated exposure control, adjustment of mA and/or kV according to salina ent size. COMPARISON: CT abdomen pelvis 09/18/2022, 07/23/2022, 04/17/2022. FINDINGS: Image quality: Excellent. Lung bases:There is mild scarring and atelectasis in the lung bases. Heart: Heart is normal in size. There is a small hiatal hernia. ABDOMEN: Liver:There is interval increase in size of multiple ill-defined hypoattenuating lesions within the right and left hepatic lobes with associated capsular retraction anteriorly compatible with sequelae of treated disease. A inbound call center representative lesion within segment 8 of the right hepatic lobe anteriorly bina sures up to 1.9 cm in series 3 image 17, increased from approximately 1.1 cm on the prior study. Anot her inbound call center representative lesion posteriorly in the right hepatic lobe in segment 7 measures up to 1.6 cm in series 3 image 27. This was not discretely visualized on the prior study. Gallbladder: Within normal limits without calcified gallstones. Biliary ducts: No biliary ductal dilatation. Pancreas: Unremarkable. Spleen: Normal in size. Adrenal Glands: No adrenal nodules. Kidneys and Ureters: No hydronephrosis. There is a small right renal cyst. Stomach and Bowel: Stomach and small bowel loops are normal in caliber and wall thickness. No eviden ce of appendicitis. There is colonic diverticulosis without acute diverticulitis. Mild residual wall thickening in the rectum appears similar to the prior study. There is interval increase in size of a left mesorectal lymph node measuring up to 1.1 cm in short axis compared to 0.6 cm previously. More s uperiorly, a second left mesorectal lymph node measures up to 0.6 cm short axis, increased from 0.3 c m previously. The findings are compatible with progression of local magnolia metastatic disease. Peritoneum: No abnormal intraperitoneal fluid. No free air. Ventral Wall: No hernia. Abdominal Nodes:There are multiple enlarged delbert hepatis lymph nodes. A inbound call center representative node measure s up to 2.3 cm in short axis on series 3 image 31 compared to 1.3 cm previously. Vessels: Aorta and inferior vena cava are normal in size. PELVIS: Pelvic Organs: Unremarkable. Bladder: Unremarkable. Pelvic Nodes: No enlarged lymph nodes. Miscellaneous: No inguinal hernias. Bones: Visualized osseous structures demonstrate no suspicious lesions. IMPRESSION: 1. Increase in size and number of multiple ill-defined hepatic mass lesions consistent with progressi on of metastatic disease. 2. Increase in size of multiple enlarged delbert hepatis lymph nodes consistent with magnolia metastatic d isease. 3. Increase in size of left mesorectal lymph nodes along the rectosigmoid colon consistent with local magnolia metastatic disease. Reviewed by: Yaron Daugherty MD on 10/30/2022 1:44 AM PDT Approved by: Yaron Daugherty MD on 10/30/2022 1:44 AM PDT Station ID: [id number]
[2022-10-30] MEDS ORDERED: iohexoL-300 100 ML VIAL IVP ONE (01:47)
[2022-10-30] MEDS ORDERED: DIATRIZOATE MEGLU/DIATRIZO SOD 30 ML BOTTLE PO ONE (01:47)
[2022-10-30 02:35] VITALS: BP 180/91
== END 2022-10-30 03:12 | disposition home or self-care (01) ==
LOC: ED 21:56
DX: R10.9 Unspecified abdominal pain (principal)
CPT/HCPCS: 36415; 74177; 80053; 81003; 83690; 85025; 96374; 96375; 99284; J1170; Q9967; 81001; 87086

== ENCOUNTER 2022-11-04 11:32 | Outpatient (CLI) | payer MEDICAID ==
--- NOTE | 2022-11-04 13:33 | XRAY Report ---
PROCEDURE: Chest 2 View X-Ray INDICATIONS: COUGH,FEVER TECHNIQUE: 2 views of the chest were acquired. COMPARISON: CT chest 09/18/2022 FINDINGS: Surgical changes and devices: Left chest port with tip of the catheter projecting near the superior c avoatrial junction. Lungs and pleura: No pleural effusions or pneumothorax. Blunting of the left costophrenic angle like ly related to prominent mediastinal adipose tissue as seen on prior CT. No definite acute airspace op acity identified. No streaky opacities right lung base likely scarring and/or atelectasis as seen on prior CT. Mediastinum: Mediastinal contours are normal. Heart size is normal. Bones and chest wall: No suspicious bony abnormalities. Soft tissues appear unremarkable. IMPRESSION: No acute cardiopulmonary abnormality. Reviewed by: Logan Garland MD on 11/04/2022 1:31 PM PDT Approved by: Logan Garland MD on 11/04/2022 1:31 PM PDT Station ID: [id number]
== END 2022-11-04 11:33 | disposition home or self-care (01) ==
LOC: DI 11:32
PROVIDERS: ATTEND Nurse Practitioner Adult Health
DX: R05.9 Cough, unspecified (principal); R50.9 Fever, unspecified

== ENCOUNTER 2022-11-11 16:31 | Emergency (ER) | payer MEDICAID ==
[2022-11-11 16:56] LABS: BASOPHILS % (AUTO) 0.5 %; EOSINOPHILS % (AUTO) 0.3 %; HCT - HEMATOCRIT 42.7 % (42.0-52.0); HGB - HEMOGLOBIN 13.8 g/dL (14.0-18.0); LYMPHOCYTES # (AUTO) 1.1 10^3/uL (1.5-3.5); LYMPHOCYTES % (AUTO) 13.7 %; MEAN CORPUSCULAR HEMOGLOBIN 30.7 pg (27.0-31.0); MEAN CORPUSCULAR HGB CONC 32.3 g/dL (32.0-36.0); MEAN CORPUSCULAR VOLUME 94.9 fL (80.0-94.0); MEAN PLATELET VOLUME 9.8 fL (7.4-11.4); MONOCYTES # (AUTO) 1.3 10^3/uL (0.0-1.0); MONOCYTES % (AUTO) 17.4 %; NEUTROPHILS # (AUTO) 5.2 10^3/uL (1.5-6.6); NEUTROPHILS % (AUTO) 67.3 %; PLT - PLATELET COUNT 160 10^3/uL (130-450); RED CELL DISTRIBUTION WIDTH 14.8 % (12.0-15.0); WHITE BLOOD COUNT 7.7 x10^3/uL (4.8-10.8)
[2022-11-11 17:00] LABS: INR 1.2 (0.8-1.2); PT - PROTHROMBIN TIME 13.6 secs (9.9-12.6)
[2022-11-11 17:07] LABS: PARTIAL THROMBOPLASTIN TIME 30.5 secs (24.9-33.3)
--- NOTE | 2022-11-11 17:16 | XRAY Report ---
PROCEDURE: Chest 1 View X-Ray INDICATIONS: fever, pt on chemo TECHNIQUE: One view of the chest was acquired. COMPARISON: None. FINDINGS: Surgical changes and devices: Left-sided Port-A-Cath the tip in the mid SVC Lungs and pleura: Right basilar atelectasis and or infiltrate with small pleural effusion Mediastinum: Mediastinal contours appear normal. Heart size is normal. Bones and chest wall: No suspicious bony lesions. Overlying soft tissues appear unremarkable. IMPRESSION: Small left atelectasis and or infiltrate with pleural effusion. No pneumonia. Reviewed by: Juvencio Toribio MD on 11/11/2022 4:15 PM AKDT Approved by: Juvencio Toribio MD on 11/11/2022 4:15 PM AKDT Station ID: [id number]
[2022-11-11 17:26] LABS: ALBUMIN 2.7 g/dL (3.2-5.5); ALBUMIN/GLOBULIN RATIO 0.7 (1.0-2.2); BILIRUBIN,TOTAL 0.5 mg/dL (0.2-1.0); CALCIUM 8.2 mg/dL (8.5-10.3); CREATININE 0.9 mg/dL (0.6-1.2); POTASSIUM 4.1 mmol/L (3.5-5.0); TOTAL PROTEIN 6.7 g/dL (6.7-8.2)
--- NOTE | 2022-11-11 17:28 | ED Physician Documentation ---
History of Present Illness - Stated complaint Stated Complaint: FEVER - Chief complaint Chief Complaint: Fever - History obtained from History obtained from: Patient, Family - History of Present Illness Timing: Today Pain level max: 0 Pain level now: 0 - Additonal information Additional information: 62-year-old male with a history of metastatic rectal cancer. He was at the [facility] clinic today receiving IV fluids and was sent here when he developed a fever. They sent him here for evaluation. Patient states that he had a mild cough last week, and this is improving. States took a COVID test that was negative. He states that he did not feel feverish or chilled today while receiving IV fluids. He states he was at the [facility] clinic today for dehydration. No nausea or vomiting. No abdominal pain. No chest pain. No neck pain. No headaches. Review of Systems Constitutional: denies: Fever Nose: denies: Rhinorrhea / runny nose, Congestion Throat: denies: Sore throat Respiratory: reports: Cough (Had a cough last week but now resolved) GI: denies: Vomiting, Diarrhea Skin: denies: Rash Musculoskeletal: denies: Neck pain, Back pain Neurologic: denies: Headache PD PAST MEDICAL HISTORY - Past Medical History Cardiovascular: None Endocrine/Autoimmune: None GI: Other : None Psych: None Musculoskeletal: Chronic back pain Derm: None - Past Surgical History Past Surgical History: Yes General: Colonoscopy, EGD, Other - Present Medications Home Medications: Ambulatory Orders Medication Instructions Recorded Confirmed HYDROmorphone [Dilaudid] 6 mg PO Q4H PRN 10/30/22 10/30/22 - Allergies Allergies/Adverse Reactions: Allergies Allergy/AdvReac Type Severity Reaction Status Date / Time No Known Drug Allergies Allergy Verified 11/11/22 16:34 - Social History Does the pt smoke?: No Smoking Status: Never smoker Does the pt drink ETOH?: No Does the pt have substance abuse?: No - Immunizations Immunizations are current?: No Immunizations: No immun - POLST Patient has POLST: No PD ED PE NORMAL - Vitals Vital signs reviewed: Yes - General General: Alert and oriented X 3, No acute distress - HEENT HEENT: PERRL, Ears normal, Moist mucous membranes, Pharynx benign - Neck Neck: Supple, no meningeal sign - Cardiac Cardiac: RRR, Strong equal pulses - Respiratory Respiratory: No respiratory distress, Clear bilaterally - Abdomen Abdomen: Soft, Non tender, Non distended - Derm Derm: Warm and dry, No rash - Extremities Extremities: No edema - Neuro Neuro: Alert and oriented X 3 - Psych Psych: Normal mood, Normal affect Results - Vitals Vitals: Vital Signs - 24 hr 11/11/22 11/11/22 11/11/22 16:34 17:30 19:24 Temperature 37.6 C Heart Rate 85 78 82 Respiratory 16 16 16 Rate Blood Pressure 159/92 H 141/90 H 141/83 H O2 Saturation 96 98 96 Oxygen O2 Source Room air - Labs Labs: Laboratory Tests 11/11/22 11/11/22 11/11/22 16:43 16:43 16:43 WBC 7.7 RBC 4.50 L Hgb 13.8 L Hct 42.7 MCV 94.9 H MCH 30.7 MCHC 32.3 RDW 14.8 Plt Count 160 MPV 9.8 Neut # (Auto) 5.2 Lymph # (Auto) 1.1 L Gaines # (Auto) 1.3 H Eos # (Auto) 0.0 Baso # (Auto) 0.0 Absolute Nucleated RBC 0.00 Nucleated RBC % 0.0 PT 13.6 H INR 1.2 APTT 30.5 Sodium 130 L Potassium 4.1 Chloride 95 L Carbon Dioxide 26 Anion Gap 9.0 BUN 16 Creatinine 0.9 Estimated GFR (MDRD) 86 L Glucose 96 Lactic Acid Calcium 8.2 L Total Bilirubin 0.5 AST 122 H ALT 75 H Alkaline Phosphatase 328 H Total Protein 6.7 Albumin 2.7 L Globulin 4.0 Albumin/Globulin Ratio 0.7 L Lipase 51 Urine Color Urine Clarity Urine pH Ur Specific [place] Urine Protein Urine Glucose (UA) Urine Ketones Urine Occult Blood Urine Nitrite Urine Bilirubin Urine Urobilinogen Ur Leukocyte Esterase Ur Microscopic Review Urine Culture Comments Nasal Adenovirus (PCR) Nasal B. parapertussis DNA (PCR) Nasal Coronavir 229E PCR Nasal Coronavir HKU1 PCR Nasal Coronavir NL63 PCR Nasal Coronavir OC43 PCR Nasal Enterovir/Rhinovir PCR Nasal Influenza B PCR Nasal Influenza A PCR Nasal Parainfluen 1 PCR Nasal Parainfluen 2 PCR Nasal Parainfluen 3 PCR Nasal Parainfluen 4 PCR Nasal RSV (PCR) Nasal B.pertussis DNA PCR Nasal C.pneumoniae (PCR) Marky Human Metapneumo PCR Nasal M.pneumoniae (PCR) Nasal SARS-CoV-2 (PCR) 11/11/22 11/11/22 11/11/22 16:43 17:44 17:54 WBC RBC Hgb Hct MCV MCH MCHC RDW Plt Count MPV Neut # (Auto) Lymph # (Auto) Gaines # (Auto) Eos # (Auto) Baso # (Auto) Absolute Nucleated RBC Nucleated RBC % PT INR APTT Sodium Potassium Chloride Carbon Dioxide Anion Gap BUN Creatinine Estimated GFR (MDRD) Glucose Lactic Acid 1.2 Calcium Total Bilirubin AST ALT Alkaline Phosphatase Total Protein Albumin Globulin Albumin/Globulin Ratio Lipase Urine Color YELLOW Urine Clarity CLEAR Urine pH 6.0 Ur Specific [place] 1.025 Urine Protein NEGATIVE Urine Glucose (UA) NEGATIVE Urine Ketones NEGATIVE Urine Occult Blood NEGATIVE Urine Nitrite NEGATIVE Urine Bilirubin NEGATIVE Urine Urobilinogen 0.2 (NORMAL) Ur Leukocyte Esterase NEGATIVE Ur Microscopic Review NOT INDICATED Urine Culture Comments NOT INDICATED Nasal Adenovirus (PCR) NOT DETECTED Nasal B. parapertussis DNA (PCR) NOT DETECTED Nasal Coronavir 229E PCR NOT DETECTED Nasal Coronavir HKU1 PCR NOT DETECTED Nasal Coronavir NL63 PCR NOT DETECTED Nasal Coronavir OC43 PCR NOT DETECTED Nasal Enterovir/Rhinovir PCR NOT DETECTED Nasal Influenza B PCR NOT DETECTED Nasal Influenza A PCR NOT DETECTED Nasal Parainfluen 1 PCR NOT DETECTED Nasal Parainfluen 2 PCR NOT DETECTED Nasal Parainfluen 3 PCR NOT DETECTED Nasal Parainfluen 4 PCR NOT DETECTED Nasal RSV (PCR) NOT DETECTED Nasal B.pertussis DNA PCR NOT DETECTED Nasal C.pneumoniae (PCR) NOT DETECTED Marky Human Metapneumo PCR NOT DETECTED Nasal M.pneumoniae (PCR) NOT DETECTED Nasal SARS-CoV-2 (PCR) DETECTED A - Rads (name of study) Chest x-ray Relevant Findings:: Final report received, See rad report PD Medical Decision Making - ED course Complexity details: reviewed results, re-evaluated patient, considered differential, d/w patient, d/w family, d/w sustainable design consultant (Dr. Brandt, oncology for Dr. Gary) ED course: 62-year-old male with rectal cancer, undergoing chemotherapy. Reportedly developed a fever today while receiving an IV fluid infusion for dehydration. CBC is normal. Chemistry is show mild hyponatremia consistent with dehydration. His liver function tests are chronically elevated. No significant change. Lactate is normal. Urinalysis is negative. Chest x-ray does not show any pneumonia. Respiratory PCR is positive for COVID, this likely represents the results of the cough that he had last week. He is not having any cough any further. Discussed the case with oncology on-call who recommends follow-up with the office tomorrow. No indication for antibiotics at this time. Port does not appear infected. Afebrile here. Patient's upper respiratory illness which was likely COVID started over a week ago, therefore would not treat with antivirals at this time. Patient counseled regarding signs and symptoms for which I believe and urgent re-evaluation would be necessary. Patient with good understanding of and agreement to plan and is comfortable going home at this time This document was made in part using voice recognition software. While efforts are made to proofread this document, sound alike and grammatical errors may occur. Departure - Departure Disposition: 01 Home, Self Care Clinical Impression: COVID-19 Condition: Good Instructions: ED Fever Control Follow-Up: TC GARY MD [Provider Admit Priv/Credential] - TC GARY MD [Provider Admit Priv/Credential] - Comments: You were evaluated for possible fever today. There is no fever on your vital signs here. Your white blood cell count is normal. Your urinalysis, chest x- ray and laboratory testing did not show any significant abnormalities consistent with infection. I did speak with oncology on-call jake, he recommends that you call the oncology clinic tomorrow for follow-up. Please return if you worsen. ER respiratory PCR swab is pending, if this is positive, I will call you with the results. Discharge Date/Time: 11/11/22 19:25
[2022-11-11 17:48] LABS: BILIRUBIN,URINE NEGATIVE (NEGATIVE); GLUCOSE, URINE (UA) NEGATIVE (NEGATIVE); KETONES,URINE (UA) NEGATIVE (NEGATIVE); LEUKOCYTE ESTERASE, URINE NEGATIVE (NEGATIVE); NITRITE,URINE NEGATIVE (NEGATIVE); OCCULT BLOOD,URINE NEGATIVE (NEGATIVE); PROTEIN,URINE NEGATIVE (NEGATIVE); UROBILINOGEN,URINE 0.2 (NORMAL) E.U./dL (NORMAL)
[2022-11-11 17:52] LABS: CLARITY,URINE CLEAR (CLEAR)
[2022-11-11 18:47] LABS: CORONAVIRUS 229E-RESP PCR NOT DETECTED; CORONAVIRUS HKU1-RESP PCR NOT DETECTED; CORONAVIRUS NL63-RESP PCR NOT DETECTED; CORONAVIRUS OC43-RESP PCR NOT DETECTED
[2022-11-11 18:50] LABS: B. PARAPERTUSSIS- RESP PCR PAN NOT DETECTED; B. PERTUSSIS- RESP PCR PANEL NOT DETECTED; C. PNEUMONIAE- RESP PCR PANEL NOT DETECTED; HUMAN METAPNEUMOVIRUS NOT DETECTED; INFLUENZA A- RESP PCR PANEL NOT DETECTED; INFLUENZA B - RESP PCR PANEL NOT DETECTED; M. PNEUMONIAE- RESP PCR PANEL NOT DETECTED; PARAINFLUENZA VIRUS 1 NOT DETECTED; PARAINFLUENZA VIRUS 2 NOT DETECTED; PARAINFLUENZA VIRUS 3 NOT DETECTED; PARAINFLUENZA VIRUS 4 NOT DETECTED; RHINOVIRUS/ENTEROVIRUS NOT DETECTED; RSV- RESP PCR PANEL NOT DETECTED; SARS-CoV-2 -RESP PCR PANEL DETECTED
[2022-11-11 19:25] VITALS: BP 141/83
== END 2022-11-11 19:25 | disposition home or self-care (01) ==
LOC: ED 16:31
DX: U07.1 COVID-19 (principal)
CPT/HCPCS: 36415; 80053; 81001; 81003; 83605; 83690; 85025; 85610; 85730; 87040; 87086; 87633; 96374; 99284

== ENCOUNTER 2022-11-29 14:19 | Emergency (ER) | payer MEDICAID ==
--- NOTE | 2022-11-29 16:24 | ED Physician Documentation ---
History of Present Illness - Stated complaint Stated Complaint: YELLOW SKIN/EYES - Chief complaint Chief Complaint: Abd Pain - History obtained from History obtained from: Patient - Additonal information Additional information: The patient comes to the emergency department chief complaint of noticing yellow skin and yellow eyes today. The patient has a history of current and active rectal cancer with metastases to the liver. He has undergone chemotherapy and is currently on an immune agent for this. The patient states that he has not had any increase in abdominal pain or change in his bowel habits. He has not been vomiting. He states that when he got up this morning, he noticed that the "whites of his eyes" looked yellowish as did his skin. He denies any use of alcohol or Tylenol. No new medications. He states that so far, he does not think he has had much response of his cancer to any of the treatments. He states he was sent here by Dr. Gil, his oncologist, who would like to know the results of his work-up when it is done. PD PAST MEDICAL HISTORY - Past Medical History Cardiovascular: None Endocrine/Autoimmune: None GI: Other : None Psych: None Musculoskeletal: Chronic back pain Derm: None Other Past Medical History: colorectal cancer w/mets to liver - Past Surgical History Past Surgical History: Yes General: Colonoscopy, EGD, Other - Present Medications Home Medications: Ambulatory Orders Medication Instructions Recorded Confirmed HYDROmorphone [Dilaudid] 6 mg PO Q4H PRN 10/30/22 11/27/22 - Allergies Allergies/Adverse Reactions: Allergies Allergy/AdvReac Type Severity Reaction Status Date / Time No Known Drug Allergies Allergy Verified 11/11/22 16:34 - Social History Does the pt smoke?: No Smoking Status: Never smoker Does the pt drink ETOH?: No Does the pt have substance abuse?: No - Immunizations Immunizations are current?: No Immunizations: No immun - POLST Patient has POLST: No PD ED PE NORMAL - Vitals Vital signs reviewed: Yes - General General: Alert and oriented X 3, No acute distress - HEENT HEENT: Atraumatic, PERRL, EOMI, Moist mucous membranes, Other (Possible mild icterus) - Neck Neck: Supple, no meningeal sign - Cardiac Cardiac: RRR, No murmur - Respiratory Respiratory: No respiratory distress, Clear bilaterally - Abdomen Abdomen: Soft, Non tender, Non distended, Other (Hepatomegaly) - Derm Derm: Warm and dry, No rash, Other (Moderate pallor, possible slight jaundice.) - Extremities Extremities: No deformity - Neuro Neuro: Alert and oriented X 3 - Psych Psych: Normal mood, Normal affect Results - Vitals Vitals: Oxygen O2 Source Room air - Labs Labs: Laboratory Tests 11/29/22 11/29/22 11/29/22 16:39 16:39 16:39 WBC 9.7 RBC 3.97 L Hgb 12.3 L Hct 36.4 L MCV 91.7 MCH 31.0 MCHC 33.8 RDW 17.6 H Plt Count 159 MPV 10.9 Neut # (Auto) 7.3 H Lymph # (Auto) 1.0 L [place] # (Auto) 1.4 H Eos # (Auto) 0.0 Baso # (Auto) 0.1 Absolute Nucleated RBC 0.00 Nucleated RBC % 0.0 PT 15.6 H INR 1.4 H Sodium 132 L Potassium 3.5 Chloride 98 L Carbon Dioxide 23 Anion Gap 11.0 BUN 18 Creatinine 0.7 Estimated GFR (MDRD) 115 Glucose 124 H Calcium 9.1 Magnesium 1.9 Total Bilirubin 4.0 H AST 139 H ALT 65 H Alkaline Phosphatase 475 H Total Protein 6.1 L Albumin 2.4 L Globulin 3.7 Albumin/Globulin Ratio 0.6 L Lipase 30 PD Medical Decision Making - ED course Complexity details: reviewed old records, reviewed results, re-evaluated patient, considered differential, d/w patient ED course: I did review the patient's old laboratory studies and found that the patient has as recently as late October had a normal total bilirubin. He did appear to possibly be slightly jaundiced/icteric, and so I did order laboratory studies on the patient here. His total bilirubin was up to 4.0 on my review of the ER abdominal panel, and patient did have other LFT elevations as well. He was CBC was fairly unremarkable by my review. At this point in time, the patient is awaiting a CT scan of the abdomen and pelvis after which we will call Dr. Gil, who is requested a phone call. The patient at this point in time is signed out to Dr. Morgan at change of shift, pending the CT scan. 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 Lund, one of Dr. Gil's partners. She does not feel that urgent transfer for intervention is necessary and this is unfortunately just the cancer progressing. Follow-up with Dr. Gil next week as scheduled. Discharge Date/Time: 11/29/22 19:29
[2022-11-29 16:49] LABS: BASOPHILS # (AUTO) 0.1 10^3/uL (0.0-0.1); BASOPHILS % (AUTO) 0.6 %; EOSINOPHILS % (AUTO) 0.1 %; HCT - HEMATOCRIT 36.4 % (42.0-52.0); HGB - HEMOGLOBIN 12.3 g/dL (14.0-18.0); LYMPHOCYTES % (AUTO) 9.9 %; MEAN CORPUSCULAR HGB CONC 33.8 g/dL (32.0-36.0); MEAN CORPUSCULAR VOLUME 91.7 fL (80.0-94.0); MEAN PLATELET VOLUME 10.9 fL (7.4-11.4); MONOCYTES # (AUTO) 1.4 10^3/uL (0.0-1.0); MONOCYTES % (AUTO) 13.9 %; NEUTROPHILS # (AUTO) 7.3 10^3/uL (1.5-6.6); NEUTROPHILS % (AUTO) 74.9 %; PLT - PLATELET COUNT 159 10^3/uL (130-450); RED BLOOD COUNT 3.97 10^6/uL (4.70-6.10); RED CELL DISTRIBUTION WIDTH 17.6 % (12.0-15.0); WHITE BLOOD COUNT 9.7 x10^3/uL (4.8-10.8)
[2022-11-29 16:57] LABS: INR 1.4 (0.8-1.2); PT - PROTHROMBIN TIME 15.6 secs (9.9-12.6)
[2022-11-29 16:59] LABS: ALBUMIN 2.4 g/dL (3.2-5.5); ALBUMIN/GLOBULIN RATIO 0.6 (1.0-2.2); CALCIUM 9.1 mg/dL (8.5-10.3); CREATININE 0.7 mg/dL (0.6-1.2); MAGNESIUM 1.9 mg/dL (1.7-2.8); POTASSIUM 3.5 mmol/L (3.5-5.0); TOTAL PROTEIN 6.1 g/dL (6.7-8.2)
[2022-11-29] MEDS ORDERED: iohexoL-300 100 ML VIAL ONE (17:20)
[2022-11-29] MEDS ORDERED: iohexoL-300 100 ML VIAL IVP ONE (18:00)
--- NOTE | 2022-11-29 18:26 | CT Report ---
PROCEDURE: ABDOMEN/PELVIS W INDICATIONS: liver mets/new jaundice CONTRAST: 100ml omni 300 TECHNIQUE: After the administration of contrast, 5 mm thick sections acquired from the diaphragms to the symphys is. 5 mm thick coronal and sagittal reformats were acquired. For radiation dose reduction, the foll owing was used: automated exposure control, adjustment of mA and/or kV according to patient size. COMPARISON: 10/29/2022. FINDINGS: Image quality: Excellent. Lung bases and heart: Bibasilar atelectasis. No acute abnormality. Liver: Multiple hypoattenuating lesions of the liver appear increased in size and number compared to 10/29/2022. The liver is enlarged and irregular. Surrounding perihepatic ascites is noted. Gallbladder and biliary tree: The gallbladder demonstrates thickening of the mcpherson with no focal mass . The gallbladder is less distended compared to the prior CT. Spleen: Unremarkable. Pancreas: Unremarkable. Adrenals: Unremarkable. Kidneys and ureters: Unremarkable. Bowel and peritoneum: Diffuse wall thickening of the small bowel on the left is seen. Lymph nodes: No central or retroperitoneal adenopathy. Vessels: Unremarkable. PELVIS Reproductive organs: Small amount of fluid is seen in the pelvis. Bladder: Unremarkable. Lymph nodes: Unremarkable. Bones: No aggressive osseous abnormality. Other: None. IMPRESSION: 1. Interval increase in size and number of multiple ill-defined hepatic masses consistent with metast atic disease. 2. Enlarged lymph nodes in the delbert hepatis and left mesial rectal lymph nodes consistent with magnolia metastatic disease are unchanged. 3. Interval development of ascites. Reviewed by: Juan Haynes on 11/29/2022 6:24 PM PDT Approved by: Juna Haynes on 11/29/2022 6:24 PM PDT Station ID: [id number]
--- NOTE | 2022-11-29 18:36 | ED Physician Documentation ---
ED Addendum - Addendum Addendum: 11/29/22 18:[address] Sandy at 6 PM shift change. Briefly this is a gentleman with squamous cell carcinoma of the anus with liver metastases who presented with jaundice. He is a patient of Dr. Garretts. He has had 1 treatment of nivolumab. He presented today for new jaundice. His bilirubin was 4.0, previously had not been significantly elevated. CT showing: IMPRESSION: 1. Interval increase in size and number of multiple ill-defined hepatic masses consistent with metastatic disease. 2. Enlarged lymph nodes in the delbert hepatis and left mesial rectal lymph nodes consistent with magnolia metastatic disease are unchanged. 3. Interval development of ascites. They do not comment on obstruction of the bile duct per se, but presume this is happening from his metastases based on his mets. Call to Dr. Gil, his oncologist for consult at this time. I did discuss goals of care with patient and he has not really considered these yet nor does he know his prognosis per se. 11/29/22 19:04 I discussed the case by phone with Jayde Lund, oncology, partner of Dr. Garretts. We discussed the diagnostics and she does not feel like transfer for intervention would be helpful as it seems like it is really more just tumor load causing his jaundice as opposed to hepatic obstruction. She will notify Dr. Gil of the issues. Disposition: Discharged home condition: Stable Diagnosis: 1. Metastatic squamous cell carcinoma 2. Hepatic metastases 3. Jaundice
[2022-11-29 18:53] VITALS: BP 143/84
== END 2022-11-29 19:29 | disposition home or self-care (01) ==
LOC: ED 14:19
DX: C19 Malignant neoplasm of rectosigmoid junction (principal); C78.7 Secondary malignant neoplasm of liver and intrahepatic bile duct; R17 Unspecified jaundice; Z79.899 Other long term (current) drug therapy
CPT/HCPCS: 36415; 74177; 80053; 83690; 83735; 85025; 85610; 96374; 99284; 99285; Q9967